=== PATIENT | male | born 1975 ===

== ENCOUNTER 2017-02-13 05:33 | Day surgery (SDC) | payer OTHER ==
[2017-02-13] VITALS (7 sets, daily range): BP systolic 118–142; BP diastolic 57–92
[~2017-02-13] VITALS: Ht 172.7 cm; Wt 81.6 kg
[~2017-02-13 05:33] MED LIST: CLARITIN10 M2 ORAL
[2017-02-13] MEDS ORDERED: Ketorolac 30mg Inj ONE ×2 (05:34→06:35)
[2017-02-13] MEDS ORDERED: fentaNYL 100 mcg/2 mL IV ONE (05:34)
[2017-02-13] MEDS ORDERED: Midazolam 2mg/2ml Inj ONE (05:34)
[2017-02-13] MEDS ORDERED: Propofol 10mg/ml 20ml IV ONE (05:34)
[2017-02-13] MEDS ORDERED: LR 1000ml ONE (05:34)
[2017-02-13] MEDS ORDERED: ceFAZolin 1gm in D5W 55ml IVP ONE (06:00)
[2017-02-13] MEDS ORDERED: oxyCONTIN 20mg tab ORAL ONE (06:00)
[2017-02-13] MEDS ORDERED: celeBREX 200mg Cap **SURGERY PATIENTS ONLY ORAL ONE (06:00)
[2017-02-13] MEDS ORDERED: Duramorph PF 5mg/10ml amp ONE (06:34)
[2017-02-13] MEDS ORDERED: Lidocaine 1% 10mg/ml/Epi 0.005mg/ml 30ml vial INJ ONE (06:35)
[2017-02-13] MEDS ORDERED: Bupivacaine 0.25% Inj 30ml INJ ONE (06:35)
[2017-02-13] MEDS ORDERED: Kenalog-40 1ml Vial ONE (06:35)
[2017-02-13] MEDS ORDERED: Bupivacaine w/Epi 0.5% 30ml Vial INJ ONE (06:35)
--- NOTE | 2017-02-13 07:10 | Anethesia Preoperative Eval ---
Anesthesia Pre-op PMH/ROS General Date of Evaluation: Feb 13, 2017 Time of Evaluation: 07:07 Anesthesiologist: Dillan ASA Score: ASA 2 Mallampati Score Class I : Soft palate, uvula, fauces, pillars visible Class II: Soft palate, uvula, fauces visible Class III: Soft palate, base of uvula visible Class IV: Only hard plate visible Mallampati Classification: Class II Surgeon: Krunal Diagnosis: R knee pain Surgical Procedure: R knee arthroscopy Anesthesia History: none Family History: no anesthesia problems Allergies: Coded Allergies: LATEX (Verified Allergy, Mild, 02/12/17) rash Medications: see eMAR Past Medical History Cardiovascular: Denies: CAD, HTN, [place], arrhythmia, other, valve dz Pulmonary: Denies: COPD, MARLA, asthma, other Gastrointestinal/Genitourinary: Reports: GERD - mild, Denies: CRI, ESRD, other Neurologic/Psychiatric: Denies: CVA, TIA, dementia, depression/anxiety, other Endocrine: Denies: DM, hypothyroidism, other, steroids HEENT: Denies: [place] (L), [place] (R), cataract (L), cataract (R), glaucoma, other Hematology/Immune: Denies: DVT, anemia, bleeding disorder, other Musculoskeletal/Integumentary: Denies: DDD, DJD, OA, RA, edema, other PMH Narrative: as above PSxH Narrative: R shoulder scope. Achilles tendon repair Anesthesia Pre-op Phys. Exam Physician Exam Last Vital Signs Date Time Temp Pulse Resp B/P Pulse Ox O2 Delivery O2 Flow Rate FiO2 02/13/17 06:07 98.0 67 18 129/81 97 Room Air Constitutional: NAD Neurologic: CN 2-12 intact Cardiovascular: RRR Respiratory: CTA Gastrointestinal: S/NT/ND Airway Exam Mallampati Score: Class II MO: full Neck: flexible ROM: full Teeth: intact Dentures: no lower, no upper Anesthesia Pre-op A/P Labs see chart Studies Pre-op Studies: EKG - NSR Risk Assessment & Plan Assessment: ASA 2 Plan: GA with LMA Status Change Before Surgery: No Pre-Antibiotics Drug: Ancef 2 g Given Within 1 Hr of Incision: Yes Time Given: 07:20 KESHA VELAZQUEZ M.D. Feb 13, 2017 07:10
--- NOTE | 2017-02-13 07:12 | Pre-Procedure Note/Attestation ---
Pre-Procedure Note/Attestation Complete Prior to Procedure Planned Procedure: right Procedure Narrative: knee arthroscopic medial menisectomy Indications for Procedure Pre-Operative Diagnosis: left knee medial meniscus tear Attestation I attest that I discussed the nature of the procedure; its benefits; risks and complications; and alternatives (and the risks and benefits of such alternatives ), prior to the procedure, with the patient (or the patient's legal underwriting service representative). I attest that, if there was a reasonable possibility of needing a blood transfusion, the patient (or the patient's legal underwriting service representative) was given the [facility] standardized written summary, pursuant to the [place] Blood Safety Act ([place] Health and Safety Code # 1645, as amended). I attest that I re-evaluated the patient just prior to the surgery and that there has been no change in the patient's H&P, except as documented below: RAHUL HAWTHORNE Feb 13, 2017 07:12
--- NOTE | 2017-02-13 07:14 | Operative Note - PDOC ---
Operative Note Operative Note Pre-op Diagnosis: Right knee medial meniscus tear Procedure: right knee medial menisectomy Post-op Diagnosis: same as pre-op plus Operative Findings: consistent w/pre-op dx studies Anesthesia: MAC Specimen: none Complications: none Condition: stable Estimated Blood Loss: none Implant(s) used?: RAHUL Pfeiffer Feb 13, 2017 07:14
[2017-02-13] MEDS ORDERED: D5 1/2NS 1,000 ML IV SCH (07:15)
[2017-02-13] MEDS ORDERED: HYDROmorphone 1mg/ml Carpuject SUBQ PRN (07:15)
[2017-02-13] MEDS ORDERED: Tylenol #3 tab (300mg/30mg) ORAL PRN (07:15)
[2017-02-13] MEDS ORDERED: Norco 5mg/325mg tab ORAL PRN (07:15)
[2017-02-13] MEDS ORDERED: LR 1000ml 1,000 ML IVLG SCH (07:35)
[2017-02-13] MEDS ORDERED: Ketorolac 30mg Inj IV PRN (07:45)
[2017-02-13] MEDS ORDERED: Hydromorphone 0.5mg/0.5ml inj IVP PRN (07:45)
[2017-02-13] MEDS ORDERED: Meperidine 25mg/0.5ml Inj (FOR RIGORS ONLY) IV PRN (07:45)
[2017-02-13] MEDS ORDERED: DiphenhydrAMINE 50mg/ml Inj IVP PRN (07:45)
--- NOTE | 2017-02-13 09:06 | Immediate Post-Op Evaluation ---
Immediate Post-Op Evalulation Immediate Post-Op Evalulation Procedure: R knee arthroscopy Date of Evaluation: Feb 13, 2017 Time of Evaluation: 07:53 IV Fluids: 500 Blood Products: none Estimated Blood Loss: min Urinary Output: none Blood Pressure Systolic: 124 Blood Pressure Diastolic: 58 Pulse Rate: 74 Respiratory Rate: 20 O2 Sat by Pulse Oximetry: 99 Temperature (Fahrenheit): 97.6 Pain Score (1-10): 2 Nausea: No Vomiting: No Complications none Patient Status: awake, patent, none Hydration Status: adequate KESHA VELAZQUEZ M.D. Feb 13, 2017 09:06
--- NOTE | 2017-02-13 11:24 | 48 Hour Post Anesthesia Eval ---
Post Anesthesia Evaluation Procedure: R knee arthroscopy Date of Evaluation: Feb 13, 2017 Time of Evaluation: 11:20 Blood Pressure Systolic: 118 0: 64 Pulse Rate: 58 Respiratory Rate: 18 Temperature (Fahrenheit): 97.6 O2 Sat by Pulse Oximetry: 98 Airway: patent Nausea: No Vomiting: No Pain Intensity: 1 Hydration Status: adequate Cardiopulmonary Status: stable Mental Status/LOC: patient returned to baseline Follow-up Care/Observations: n/a Post-Anesthesia Complications: none Follow-up care needed: ready to discharge KESHA VELAZQUEZ M.D. Feb 13, 2017 11:24
--- NOTE | 2017-02-13 13:30 | Operative Note - Dictated ---
DATE OF OPERATION: 02/13/2017 PREOPERATIVE DIAGNOSIS: Right knee medial meniscus tear. POSTOPERATIVE DIAGNOSES: 1. Right knee horizontal tear possible medial meniscus. 2. Grade 3, grade 4 full-thickness chondral damage posterior medial condyle measuring 3 x 4 mm. 3. Hypertrophic synovial tissue/hypertrophic retropatellar fat pad. PROCEDURES: 1. Right knee partial arthroscopic medial meniscectomy. 2. There is a synovectomy medial lateral patellofemoral compartment. 3. Gentle chondroplasty posterior medial femoral condyle. SURGEON: Olu Hector M.D. ANESTHESIA: MAC. INDICATION FOR THE PROCEDURE: The patient is a pleasant 41-year-old gentleman with progressive right knee pain. He had an MRI, which showed evidence of a meniscal tear. He failed conservative treatment and therefore elected to undergo right knee arthroscopic medial meniscectomy. Risks, limitations, expectations, and complications of the procedure discussed in detail. All questions addressed. DESCRIPTION OF PROCEDURE: An informed consent was obtained. the patient was brought to the operating room and placed under monitored anesthesia control. Under sterile conditions, 20 mL of 0.25% Marcaine plain injected into the right knee. Postop injected 1% lidocaine with epinephrine. Esmarch was used to exsanguinate the extremity. Inferolateral stab incision was then made. Trocar was introduced with some significant assistance going through the scar tissue in the lateral gutter. Once the camera was in the knee joint systematic tour was performed. There is hypertrophic fat pad behind the retropatellar space area. Medial compartment was entered. There appeared to be a horizontal oblique tear to the anterior third of the posterior horn medial meniscus. The medial working portal was established. Synovectomy was performed to better visualize the medial compartment. The probe was then placed into the posterior horn medial meniscus. The meniscal tear was probed. Once this was done, a partial medial meniscectomy of the underside of the posterior horn of the meniscus was used using a shaver. Once the stable rim of meniscal tissue was left behind, attention was drawn towards the chondral damage. The gentle chondroplasty was performed, but given the nature of the location of the lesion was a formal microfracture was not performed. At that point, the hypertrophic ligamentum mucosa was debrided extending into the lateral compartment to better visualize the anterior cruciate ligament and lateral compartment of the knee. The anterior cruciate ligament was probed and noted to be intact. Lateral compartment was entered and free from meniscal chondral damage. At that point, the camera was repositioned in retropatellar spacer and the synovectomy was completed. At this point, the instruments were removed. Portal sites were closed with 3-0 Monocryl sutures. Steri-Strips and a sterile dressing were applied. The patient was awoken and taken to recovery in stable signs. EBL: None. COMPLICATIONS: None. SPECIMENS: None. IMPLANTS: None. Olu Hector M.D. DR: ARY JOB#: [id number] CC: [id number]
== END 2017-02-13 09:20 | disposition home or self-care (01) ==
LOC: SUR 05:33
DX: M23.221 Derangement of posterior horn of medial meniscus due to old tear or injury, right knee (principal); M94.9 Disorder of cartilage, unspecified; M67.261 Synovial hypertrophy, not elsewhere classified, right lower leg; E78.00 Pure hypercholesterolemia, unspecified; K21.9 Gastro-esophageal reflux disease without esophagitis; Z91.040 Latex allergy status
CPT/HCPCS: 29881; 97161; J0690; J1885; J2250; J2704; J3010; J3301; J3490; J7120; 94003; 94150